=== PATIENT | male | born 1985 | race Caucasian/White ===

== ENCOUNTER 2022-08-24 11:37 | Emergency (ER) | payer SELFPAY ==
[2022-08-24 11:51] VITALS: BP 94/66; PULSE 96; RESP 18; TEMP 37.7; O2SAT 96
--- NOTE | 2022-08-24 12:06 | ED.SKABFB ---
HPI - Skin/Abscess/Foreign Bdy General Chief complaint: Skin/Abscess/Foreign Body Stated complaint: under arm right side irritation Time Seen by Provider: 08/24/22 12:06 Source: patient Mode of arrival: ambulatory Limitations: no limitations History of Present Illness HPI narrative: 36 yo M presents with large abscess to R axilla. Has had redness, swelling, pain for approx. 2 wks. has been taking ibuprofen and applying a lidocaine ointment to area. Pt states he is homeless. All systems reviewed and negative except as noted above. Related Data Allergies Allergy/AdvReac Type Severity Reaction Status Date / Time No Known Allergies Allergy Verified 08/24/22 11:40 Review of Systems Review of Systems: CONSTITUTIONAL: Denies fever, chills, or sweats. EYES: Denies visual changes, redness, or discharge. ENT: Denies rhinorrhea, congestion, sore throat, or otalgia. CARDIOVASCULAR: Denies chest pain, palpitations, or edema. RESPIRATORY: Denies cough or dyspnea. GASTROINTESTINAL: Denies abdominal pain, nausea, vomiting, or diarrhea. GENITOURINARY: Denies dysuria or hematuria. SKIN: Denies rash or itching. reports redness, swelling to R axilla. MUSCULOSKELETAL: Denies back pain, joint pain, or myalgia. NEUROLOGIC: Denies headache, numbness, or weakness. PSYCHIATRIC: Denies anxiety or depression. All other systems reviewed are negative, except as documented in HPI. PMFSH Comments At time of signature, agree with nursing past medical, surgical, social and family history. There is no relevant family history pertinent to the presenting complaint. Exam Narrative: GENERAL: This is a well-nourished, well-developed patient, in no apparent distress. HEAD: normocephalic, atraumatic. EYES: PERRL. Sclera clear/white. Vision is grossly intact. EARS: External ears normal NOSE: External nose normal NECK: Neck supple, non-tender without lymphadenopathy, masses or thyromegaly. CARDIOVASCULAR: Regular rate and rhythm without murmurs, gallops, or rubs. RESPIRATORY: Clear to auscultation. Breath sounds equal bilaterally. No wheezes, rales, or rhonchi. SKIN: warm, Dry, intact with no suspicious lesions or rash, good texture and turgor. abscess to R axilla 9 x 10cm. fluctuant. tender on palpation. NEURO: awake, alert, and oriented to person, place and time. There were no obvious focal neurologic abnormalities. EXTREMITIES: No joint tenderness, effusion, or edema noted. Course Course Level of Care: Express Care Visit Vital Signs Vital signs: Vital Signs Temperature 37.7 C H 08/24/22 11:51 Pulse Rate 96 08/24/22 11:51 Respiratory Rate 18 08/24/22 11:51 Blood Pressure 94/66 L 08/24/22 11:51 Pulse Oximetry 96 08/24/22 11:51 Oxygen Delivery Room Air 08/24/22 11:51 Temperature 37.7 C H 08/24/22 12:39 Pulse Rate 96 08/24/22 12:39 Respiratory Rate 18 08/24/22 12:39 Blood Pressure 94/66 L 08/24/22 12:39 Pulse Oximetry 96 08/24/22 12:39 Oxygen Delivery Room Air 08/24/22 12:39 reviewed MDM - Skin/Abscess/Foreign Bdy MDM Narrative Medical decision making narrative: approx. 1215 attempted I and D. pt requested ibuprofen and stated he needed 20 minutes for it to kick in . (it was recommended to pt with an abscess this size that he go to the ER for pain control and I and D but he stated if it wasn't taken care of here he'd just go back out of streets . approx. 1235 attempted I and D. pt kicked and yelling while applying betadine. pt refused. Said ibuprofen not working yet. requested topical pain relief. offered again to transfer pt to ER for I and D and he said he'd go back out on streets . approx. 1335 attempted I and D. pt yelling while applying betadine. kicking feet. cussing. yelling we are not professional. explained to him how lidocaine would be administered. he refused procedure and stated he wanted to leave. prescribed clindamycin. recommended to him that he go to the ER for treatment. he
--- NOTE | 2022-08-24 12:11 | PC.NURSE ---
grandmother called and no answer. msg left per pt request. stated has no transportation and needs grandmother here.
[2022-08-24] MEDS: IBUPROFEN 600 MG TABLET PO (12:21)
--- NOTE | 2022-08-24 12:32 | PC.NURSE ---
call attempted to grandmother again with no answer. pt unable to tolerate touch. kept pulling away and yelling and grabbing at final canoe inspector.
[2022-08-24 12:39] VITALS: BP 94/66; PULSE 96; RESP 18; TEMP 37.7; O2SAT 96
[2022-08-24] MEDS: LIDOCAINE, EPINEPHRINE, TETRACAINE VISCOUS SOLN 3 ML TOPICAL (12:51)
--- NOTE | 2022-08-24 12:51 | PC.NURSE ---
attempt #3 to call grandmother.
--- NOTE | 2022-08-24 13:43 | PC.NURSE ---
grandmother answered phone and stated could be here in 15-20 min. aware of need for further evaluation. will provide transportation to er. was unable to tolerate procedure, was kicking legs and yelling when rn medical inpatient services attempted to clean with betadine.
--- NOTE | 2022-08-24 13:59 | PC.NURSE ---
grandmother here to provide transportation.
--- NOTE | 2022-08-24 14:34 | PC.NURSE ---
1346 grandmother did come to [facility] and provided transportation to er.
== END 2022-08-24 13:46 | disposition left against medical advice (07) ==
PROVIDERS: Emergency Provider Nurse Practitioner Family; PCP Family Medicine
DX: L02.411 Cutaneous abscess of right axilla (principal)
CPT/HCPCS: 99213; A9270; G0463

== ENCOUNTER 2022-08-24 14:33 | Inpatient (IN) | payer OTHER, SELFPAY ==
[2022-08-24 14:34] VITALS: BP 123/68; PULSE 88; RESP 16; TEMP 36.9; O2SAT 96
[2022-08-24 15:15] VITALS: BP 102/58; PULSE 81; RESP 16; O2SAT 100
[2022-08-24 15:15] LABS: Basophils Absolute Auto 0.1 K/mm3 (0.0-0.1); Basophils Percent Auto 0.6 % (0.2-1.2); Eosinophils Absolute Auto 0.6 K/mm3 (0-0.3); Eosinophils Percent Auto 3.1 % (0-4.4); Hemoglobin 13.3 g/dL (14.0-18.0); Immature Granulocyte Absolute 0.21 K/mm3 (0.00-0.031); Immature Granulocyte Percent A 1.1 % (0-0.5); Lymphocytes Absolute Auto 2.34 K/mm3 (0.9-3.2); Lymphocytes Percent Auto 11.9 % (18.3-44.2); Mean Corpuscular HGB Conc 33.3 g/dl (32-36); Mean Corpuscular Hemoglobin 29.9 pg (26-34); Mean Corpuscular Volume 89.9 fl (80-100); Mean Platelet Volume 8.9 fl (7.4-10.4); Monocytes Absolute Auto 2.2 K/mm3 (0.1-0.6); Monocytes Percent Auto 11.1 % (2.6-8.5); Neutrophils Absolute Auto 14.2 K/mm3 (1.3-6.7); Neutrophils Percent Auto 72.2 % (45.5-73.1); Platelet Count Result 423 k/mm3 (150-375); Red Blood Count 4.45 M/mm3 (4.6-6.20); Red Cell Distribution Width 12.8 % (11.5-14.5); White Blood Count 19.7 K/mm3 (4.5-10.0)
[2022-08-24 15:27] LABS: Alanine Aminotransferase 25 U/L (6-50); Albumin Level 3.6 g/dL (3.5-5.1); Alkaline Phosphatase 112 U/L (38-126); Anion Gap 4 mmol/L (8-16); Aspartate Amino Transferase 26 U/L (17-59); Bilirubin,Total 0.5 mg/dL (0.2-1.3); Blood Urea Nitrogen 11 mg/dL (9-20); Calcium 8.6 mg/dL (8.4-10.2); Carbon Dioxide 32 mmol/L (22-30); Chloride 99 mmol/L (98-107); Estimated CRCL calculation 75 ml/min; Estimated Glomerular Filt Rate > 60; Glucose 122 mg/dL (65-110); Potassium 3.4 mmol/L (3.4-5.0); Sodium 135 mmol/L (137-145)
[2022-08-24 16:02] VITALS: BP 118/68; PULSE 86; RESP 16; TEMP 37.1; O2SAT 100
--- NOTE | 2022-08-24 16:23 | ED.SKABFB ---
HPI - Skin/Abscess/Foreign Bdy General Chief complaint: Skin/Abscess/Foreign Body <LEA Ramey Last Filed: 08/24/22 18:33> Stated complaint: right axilla abcess <LEA Ramey Last Filed: 08/24/22 18:33> Time Seen by Provider: 08/24/22 14:52 <LEA Ramey Last Filed: 08/24/22 18:33> Source: patient and old records reviewed <LEA Ramey Last Filed: 08/24/22 18:33> Mode of arrival: ambulatory <LEA Ramey Filed: 08/24/22 18:33> Limitations: no limitations <LEA Ramey Last Filed: 08/24/22 18:33> History of Present Illness HPI narrative: Patient is a 36-year-old homeless man who presents to the ED with report of an abscess to his right axilla. Patient reports the abscess began about 1 week ago as an ingrown hair. It has continued to bother him and has not improved. He reports pain to his axillary region. Denies any fevers. Patient was seen at an urgent care prior to arrival and would not allow the I&D to be performed. He was referred here. Patient has never had any symptoms like this before. <LEA Ramey Last Filed: 08/24/22 18:33> Related Data Allergies/Adverse reactions: Allergies Allergy/AdvReac Type Severity Reaction Status Date / Time No Known Allergies Allergy Verified 08/25/22 14:24 <LEA Ramey Last Filed: 08/24/22 18:33> Review of Systems Review of Systems: CONSTITUTIONAL: Denies fever, chills, or sweats. SKIN: See HPI. MUSCULOSKELETAL: See HPI. NEUROLOGIC: Denies headache, numbness, or weakness. <LEA Ramey Last Filed: 08/24/22 18:33> All systems reviewed & are unremarkable except as noted in HPI and below <Stacia Alfaro PA-C - Last Filed: 08/24/22 18:33> [facility] Past Medical History Medical History: Medical History (Updated 08/25/22 @ 14:14 by Moi Hand DO) Medical history unknown <Stacia Alfaro PA-C - Last Filed: 08/24/22 18:33> Family History Family History: Family History (Updated 08/25/22 @ 14:14 by Moi Hand DO) Other Family history unknown <Stacia Alfaro PA-C - Last Filed: 08/24/22 18:33> Social History Social History: Social History (Updated 08/25/22 @ 13:26 by Lei Davis DO) Smoking packs per day: 1 Smoking cigarettes per day: 20.0 Years smoked: 15 Smoking pack-years: 15.00 Smoking status: Current every day smoker Tobacco type: cigarettes and e-cigarettes/vaping Alcohol intake: never Substance use: current Substance use type: methamphetamine Other substance usage details: and other drugs Lack of Transportation: YES Lack of Food: Often True Current Housing: I Do Not Have Housing Concerned About Future Housing: YES Difficulty Paying Gas/Electric Bills: YES Difficulty Paying for Meds: YES Currently Unemployed: YES Education: Grade School Difficulty w/ Childcare or Family Care: No Spiritual care concerns: No <Stacia Alfaro PA-C - Last Filed: 08/24/22 18:33> Exam Narrative: GENERAL: Short stature, thin, non-toxic, in no acute distress. HEAD: Normocephalic, atraumatic. ENT: Edentulous. NECK: Supple. No adenopathy, no masses. RESPIRATORY: Airway patent, respirations nonlabored. Clear to auscultation bilaterally, no rales, rhonchi, wheezing. CARDIOVASCULAR: Regular rate and rhythm without murmurs, rubs, or gallops. Radial pulses 2+ and equal bilaterally. MUSCULOSKELETAL: Moves all extremities. Strength/ROM intact without gross deformities. SKIN: Warm, dry, normal color. No rashes. Large baseball-sized abscess to R axillary region, diffuse fluctuance appreciated, no obvious pustular head. Severe TTP with any palpation of abscess. NEURO: A&O X3. Speech clear. Cranial nerves II-XII grossly intact. Steady gait. No ataxic movements. PSYCHIATRIC: Appropriate mood a
[2022-08-24] MEDS: LIDOCAINE HCL 1% LOCAL INJ 10 ML VIAL 5 ML INFILTRATE (17:17)
[2022-08-24 17:30] VITALS: BP 128/70; PULSE 82; RESP 16; TEMP 36.3; O2SAT 100
[2022-08-24] MEDS: ACETAMINOPHEN 500 MG TABLET 1000 MG PO (18:13)
[2022-08-24 18:20] LABS: Lactic Acid Reflex 1.5 mmol/L (0.7-2.0)
[2022-08-24 18:36] VITALS: BP 95/47; PULSE 67; RESP 16; TEMP 36.3; O2SAT 100
[2022-08-24] MEDS: VANCOMYCIN 750 MG/NS 250 ML 750 MG/250 ML BAG 250 MG IVPB (18:36)
[2022-08-24 20:00] VITALS: BP 92/59; PULSE 74; RESP 18; TEMP 37; O2SAT 99
[2022-08-24 21:21] LABS: Basophils Absolute Auto 0.1 K/mm3 (0.0-0.1); Basophils Percent Auto 0.7 % (0.2-1.2); Eosinophils Absolute Auto 0.9 K/mm3 (0-0.3); Eosinophils Percent Auto 5.7 % (0-4.4); Hemoglobin 12.9 g/dL (14.0-18.0); Immature Granulocyte Absolute 0.19 K/mm3 (0.00-0.031); Immature Granulocyte Percent A 1.2 % (0-0.5); Lymphocytes Absolute Auto 2.45 K/mm3 (0.9-3.2); Lymphocytes Percent Auto 15.9 % (18.3-44.2); Mean Corpuscular HGB Conc 33.1 g/dl (32-36); Mean Corpuscular Hemoglobin 29.8 pg (26-34); Mean Corpuscular Volume 90.1 fl (80-100); Monocytes Absolute Auto 1.7 K/mm3 (0.1-0.6); Neutrophils Absolute Auto 10.1 K/mm3 (1.3-6.7); Neutrophils Percent Auto 65.5 % (45.5-73.1); Platelet Count Result 399 k/mm3 (150-375); Red Blood Count 4.33 M/mm3 (4.6-6.20); Red Cell Distribution Width 12.7 % (11.5-14.5); White Blood Count 15.4 K/mm3 (4.5-10.0)
[2022-08-24 21:36] LABS: Anion Gap 8 mmol/L (8-16); Blood Urea Nitrogen 14 mg/dL (9-20); Calcium 8.4 mg/dL (8.4-10.2); Carbon Dioxide 29 mmol/L (22-30); Chloride 100 mmol/L (98-107); Estimated CRCL calculation 75 ml/min; Estimated Glomerular Filt Rate > 60; Glucose 166 mg/dL (65-110); Potassium 3.5 mmol/L (3.4-5.0); Sodium 137 mmol/L (137-145)
[2022-08-24 21:53] LABS: CRP 22.6 mg/dL (<1.0)
[2022-08-24 21:57] LABS: Erythrocyte Sedimentation Rate 45 mm/hr (0-20)
[2022-08-25] VITALS (11 sets, daily range): BP systolic 94–147; BP diastolic 48–74; PULSE 70–86; RESP 14–23; TEMP 36–37.7; O2SAT 98–100; BMI 14.5
--- NOTE | 2022-08-25 02:02 | PM.IMHP ---
H&P: HPI History of Present Illness Date/Time: 08/25/22 02:02 Chief Complaint: Left axillary abscess. Narrative: This is a 36-year-old homeless man who presents to the ED with report of an abscess to his right axilla.?The patient was in his usual state of health until a week ago. He denies any prior episode. Patient reports the abscess began about 1 week ago as an ingrown hair.? It has continued to bother him and has not improved.? He reports pain to his axillary region.? Denies any fevers, chills, or diaphoresis.? Patient was seen at an urgent care prior to arrival and would not allow the I&D to be performed.? Patient underwent I and D; approximately 60 mL of purulent drainage was drained from abscess . Procedure was aborted due to the patient's lack of cooperation. In the ED the patient presented with the following vital signs: A temperature of 98.4?, pulse rate 88, respiratory rate 16, blood pressure 123/68 and a pulse oximetry of 96. He CBC showed a WBC of 19.7 with 72% neutrophils, hemoglobin 13.3, hematocrit 40 and a platelet count of 423. His serum chemistry shows a sodium of 135, potassium 3.4, chloride 99, bicarbonate 32, BUN 11, and creatinine 0.1. Blood glucose is 122. The patient was appropriately started on IV vancomycin while cultures are pending. Given the patient's social challenges, being homeless, he will be admitted as an inpatient for at least 2 midnights for further management. Review of Systems Review of Systems: CONSTITUTIONAL: Negative for any fevers, chills, night sweats, tiredness, fatigue, malaise, anorexia or weight loss. CARDIOVASCULAR: Negative for chest pain, palpitations, dizziness, orthopnea or lower extremity edema. RESPIRATORY: Negative for shortness of breath, cough, wheezing, sputum. GENITOURINARY: Negative for frequency, nocturia, dysuria, hematuria. GYNECOLOGIC: Negative for abnormal bleeding. HEMATOLOGIC: Negative for any abnormal bleeding or bruising. MUSCULOSKELETAL: Negative for joint swelling, stiffness or pain. SKIN: Positive for painful abscess. Negative for rashes, eruptions, lesions or dryness. NEUROLOGIC: Negative for any focal neurologic complaints. PSYCHIATRIC: Negative for anxiety, panic, depression. [facility] Social History Social History Smoking packs per day: 1 Smoking cigarettes per day: 20.0 Years smoked: 15 Smoking pack-years: 15.00 Smoking status: Current every day smoker Tobacco type: cigarettes and e-cigarettes/vaping Alcohol intake: never Substance use: never Substance use type: does not use Lack of Transportation: YES Lack of Food: Often True Current Housing: I Do Not Have Housing Concerned About Future Housing: YES Difficulty Paying Gas/Electric Bills: YES Difficulty Paying for Meds: YES Currently Unemployed: YES Education: Grade School Difficulty w/ Childcare or Family Care: No Spiritual care concerns: No Meds Home Medications and Allergies Home Medications Medication Instructions Recorded Confirmed Type clindamycin HCl 300 mg capsule 300 mg PO Q6H 10 days #40 caps 08/24/22 08/24/22 Rx Allergies Allergy/AdvReac Type Severity Reaction Status Date / Time No Known Allergies Allergy Verified 08/24/22 11:40 Vital Signs Vital Signs - 24 hr 08/24/22 14:34 08/24/22 15:15 08/24/22 16:02 Temperature 98.4 F 98.8 F Pulse Rate 88 81 86 Respiratory Rate 16 16 16 Blood Pressure 123/68 102/58 L 118/68 Pulse Oximetry 96 100 100 Oxygen Delivery 08/24/22 17:30 08/24/22 18:36 08/24/22 20:00 Temperature 97.4 F L 97.3 F L 98.6 F Pulse Rate 82 67 74 Respiratory Rate 16 16 18 Blood Pressure 128/70 95/47 L 92/59 L Pulse Oximetry 100 100 99 Oxygen Delivery 08/24/22 20:05 Temperature Pulse Rate Respiratory Rate Blood Pressure Pulse Oximetry Oxygen Delivery Room Air Exam Narrative: GENERAL: The patient is alert and oriented, in n
[2022-08-25 06:50] LABS: Estimated CRCL calculation 75 ml/min; Estimated Glomerular Filt Rate > 60
[2022-08-25 07:00] LABS: Hemoglobin A1C 5.5 % (<5.7)
[2022-08-25] MEDS: LACTATED RINGERS 1,000 ML 100 ML IV CONT ×2 (08:59→21:38)
--- NOTE | 2022-08-25 11:33 | WPDHPUPDATE1 ---
History and Physical Update Update Date/Time: 08/25/22 11:33 History and Physical has been reviewed, including an updated exam of the patient. There are NO changes in the patient's condition. Risks, benefits, and alternatives have been discussed and questions answered. Patient agrees to proceed with procedure.
--- NOTE | 2022-08-25 11:33 | PM.CNGS ---
Assessment and Plan Assessment and plan (1) Abscess of axilla, right: Code(s): L02.411 - Cutaneous abscess of right axilla Status: Acute Assessment and Plan: Patient has a large fluctuant abscess in the right axilla. I&D was attempted in the ED but there was still undrained areas and patient couldn't tolerate under local. Have recommended proceeding with incision and drainage of right axillary abscess under sedation in the operating room. I have discussed the procedure, risks, benefits, and alternatives. Questions were answered. History of Present Illness Consult details Consult date: 08/25/22 Reason for consult: other (Right axillary abscess) Requesting physician: Stacia Alfaro PA-C Narrative: This is a 36-year-old man who presented to the emergency department overnight with right axillary pain. He was noticing redness and swelling in this region over the past week. He was found to have a large axillary abscess and incision and drainage was attempted in the emergency department. A lot of purulence fluid was drained, but he continued to have further swelling in this region and could not tolerate any more bedside procedure with local alone. He was admitted and placed on IV antibiotics. No imaging has been performed yet. Review of Systems Review of Systems: All systems reviewed & are unremarkable except as noted in HPI and below Eyes: Eyes: Denies change in vision ENT: Denies hearing loss, Denies neck pain and Denies sore throat Cardiovascular: Cardiovascular: Denies chest pain and Denies dyspnea Respiratory: Respiratory: Denies cough, Denies dyspnea and Denies wheezing Genitourinary: Genitourinary: Denies hematuria and Denies dysuria Musculoskeletal: Musculoskeletal: Denies arthralgias, Denies joint swelling and Denies neck pain Integumentary/Breasts: Skin/Breast: Reports as per HPI Allergic/Immunologic: Allergic/Immunologic: Denies wheezing [facility] Past Medical History Medical History (Updated 08/25/22 @ 14:14 by Moi Hand DO) Medical history unknown Family History Family History (Updated 08/25/22 @ 14:14 by Moi Hand DO) Other Family history unknown Social History Social History (Updated 08/25/22 @ 13:26 by Lei Davis DO) Smoking packs per day: 1 Smoking cigarettes per day: 20.0 Years smoked: 15 Smoking pack-years: 15.00 Smoking status: Current every day smoker Tobacco type: cigarettes and e-cigarettes/vaping Alcohol intake: never Substance use: current Substance use type: methamphetamine Other substance usage details: and other drugs Lack of Transportation: YES Lack of Food: Often True Current Housing: I Do Not Have Housing Concerned About Future Housing: YES Difficulty Paying Gas/Electric Bills: YES Difficulty Paying for Meds: YES Currently Unemployed: YES Education: Grade School Difficulty w/ Childcare or Family Care: No Spiritual care concerns: No Meds Home Medications and Allergies Home Medications Medication Instructions Recorded Confirmed Type clindamycin HCl 300 mg capsule 300 mg PO Q6H 10 days #40 caps 08/24/22 08/24/22 Rx Allergies Allergy/AdvReac Type Severity Reaction Status Date / Time No Known Allergies Allergy Verified 08/24/22 11:40 Vital Signs Vital Signs - 24 hr 08/24/22 14:34 08/24/22 15:15 08/24/22 16:02 Temperature 36.9 C 37.1 C Pulse Rate 88 81 86 Respiratory Rate 16 16 16 Blood Pressure 123/68 102/58 L 118/68 Pulse Oximetry 96 100 100 Oxygen Delivery 08/24/22 17:30 08/24/22 18:36 08/24/22 20:00 Temperature 36.3 C L 36.3 C L 37.0 C Pulse Rate 82 67 74 Respiratory Rate 16 16 18 Blood Pressure 128/70 95/47 L 92/59 L Pulse Oximetry 100 100 99 Oxygen Delivery 08/24/22 20:05 08/25/22 04:03 08/25/22 08:50 Temperature 36.1 C L Pulse Rate 75 Respiratory Rate 18 Blood Pressure 94/54 L Pulse Oximetry 100 Oxygen Delivery Ro
[2022-08-25] MEDS: VANCOMYCIN 750 MG/NS 250 ML 750 MG/250 ML BAG 250 MG IVPB (12:37)
[2022-08-25] MEDS: LACTATED RINGERS 1,000 ML 30 ML IV CONT ×2 (13:00→14:04)
--- NOTE | 2022-08-25 13:04 | PC.NURSE ---
To OR per stretcher. Report given to FAWAD Baca .
--- NOTE | 2022-08-25 13:22 | WPDANESEPPF ---
Anes - Initial Pre Proc Eval Procedure: Operation Date: 08/25/22 14:00 Proposed Procedures p Incision and Debridement Right Axillary Abscess - Moi Hand DO Date/Time: 08/25/22 13:22 Surgeon: Nikolas Calvillo MD Pre Op Diagnosis: R Axillary Abscess, Leukocytosis Patient Data Age: 36 Gender: M Height: 1.57 m Weight: 36 kg Last Vital Signs Temp 36.1 C L 08/25/22 04:03 Pulse 75 08/25/22 04:03 Resp 18 08/25/22 04:03 BP 94/54 L 08/25/22 04:03 Pulse Ox 100 08/25/22 04:03 O2 Del Method Room Air 08/25/22 08:50 Allergies Allergy/AdvReac Type Severity Reaction Status Date / Time No Known Allergies Allergy Verified 08/24/22 11:40 Home Medications Medication Instructions Recorded Confirmed Type clindamycin HCl 300 mg capsule 300 mg PO Q6H 10 days #40 caps 08/24/22 08/24/22 Rx Laboratory Tests 08/24/22 08/24/22 08/24/22 15:10 17:44 21:14 WBC 19.7 H K/mm3 15.4 H K/mm3 (4.5-10.0) (4.5-10.0) RBC 4.45 L M/mm3 4.33 L M/mm3 (4.6-6.20) (4.6-6.20) Hgb 13.3 L g/dL 12.9 L g/dL (14.0-18.0) (14.0-18.0) Hct 40.0 L % 39.0 L % (42.0-52.0) (42.0-52.0) MCV 89.9 fl 90.1 fl (80-100) (80-100) MCH 29.9 pg 29.8 pg (26-34) (26-34) MCHC 33.3 g/dl 33.1 g/dl (32-36) (32-36) RDW 12.8 % 12.7 % (11.5-14.5) (11.5-14.5) Plt Count 423 H k/mm3 399 H k/mm3 (150-375) (150-375) MPV 8.9 fl 9.0 fl (7.4-10.4) (7.4-10.4) Immature Gran % (Auto) 1.1 H % 1.2 H % (0-0.5) (0-0.5) Neut % (Auto) 72.2 % 65.5 % (45.5-73.1) (45.5-73.1) Lymph % (Auto) 11.9 L % 15.9 L % (18.3-44.2) (18.3-44.2) [place] % (Auto) 11.1 H % 11.0 H % (2.6-8.5) (2.6-8.5) Eos % (Auto) 3.1 % 5.7 H % (0-4.4) (0-4.4) Baso % (Auto) 0.6 % 0.7 % (0.2-1.2) (0.2-1.2) Lymph # (Auto) 2.34 K/mm3 2.45 K/mm3 (0.9-3.2) (0.9-3.2) [place] # (Auto) 2.2 H K/mm3 1.7 H K/mm3 (0.1-0.6) (0.1-0.6) Eos # (Auto) 0.6 H K/mm3 0.9 H K/mm3 (0-0.3) (0-0.3) Baso # (Auto) 0.1 K/mm3 0.1 K/mm3 (0.0-0.1) (0.0-0.1) Abs Immat Gran (auto) 0.21 H K/mm3 0.19 H K/mm3 (0.00-0.031) (0.00-0.031) Absolute Neuts (auto) 14.2 H K/mm3 10.1 H K/mm3 (1.3-6.7) (1.3-6.7) Absolute Nucleated RBC 0.0 K/mm3 0.0 K/mm3 (0.0-0.012) (0.0-0.012) Nucleated RBC % 0.0 % 0.0 % (0.0-0.2) (0.0-0.2) ESR 45 H mm/hr (0-20) Sodium 135 L mmol/L 137 mmol/L (137-145) (137-145) Potassium 3.4 mmol/L 3.5 mmol/L (3.4-5.0) (3.4-5.0) Chloride 99 mmol/L 100 mmol/L (98-107) (98-107) Carbon Dioxide 32 H mmol/L 29 mmol/L (22-30) (22-30) Anion Gap 4 L mmol/L 8 mmol/L (8-16) (8-16) BUN 11 mg/dL 14 mg/dL (9-20) (9-20) Creatinine 0.60 L mg/dL 0.60 L mg/dL (0.7-1.3) (0.7-1.3) Estim Creat Clear Calc 75 ml/min 75 ml/min Estimated GFR > 60 > 60 (59 - ) (59 - ) Glucose 122 H mg/dL 166 H mg/dL (65-110) (65-110) Hemoglobin A1c Lactic Acid 1.5 mmol/L (0.7-2.0) Calcium 8.6 mg/dL 8.4 mg/dL (8.4-10.2) (8.4-10.2) Total Bilirubin 0.5 mg/dL (0.2-1.3) AST 26 U/L (17-59) ALT 25 U/L (6-50) Alkaline Phosphatase 112 U/L (38-126) C-Reactive Protein 22.6 H mg/dL (<1.0) Total Protein 7.0 g/dL (6.3-8.2) Albumin 3.6 g/dL (3.5-5.1) 08/25/22 06:19 WBC RBC Hgb Hct MCV MCH MCHC RDW Plt Count MPV Immature Gran % (Auto) Neut % (Auto) Lymph % (Auto) [place] % (Auto) Eos % (Auto) Baso % (Auto) Lymph # (Auto) [place] # (Auto) Eos # (Auto) Baso # (Auto) Abs Immat Gran (auto) Absolute Neuts (auto) Absolute Nuclea
--- NOTE | 2022-08-25 14:16 | W.PM.PROC2 ---
Procedure Note - Detailed Date of Procedure 08/25/22 Pre-op Diagnosis R Axillary Abscess, Leukocytosis Post-op Diagnosis Same Procedure Performed Incision and drainage of complex right axillary abscess Surgeon Moi Hand, DO Anesthesia General and Local (0.25% bupivacaine with epinephrine) Indications This is a 36-year-old man who presented to the emergency department overnight with a right axillary abscess. Incision and drainage was attempted in the emergency department and fair amount of fluid was drained but there still remained a large area of fluctuance. This was too tender to tolerate at the bedside therefore he was admitted for further treatment. Discussions were made with the patient about treatment options and decision was made to proceed with incision and drainage of right axillary abscess under anesthesia. Findings Incision and drainage of complex right axillary abscess was performed. The incision was carried out over the area of fluctuance to length of about 3 cm there were multiple loculations that were carefully broken up using finger dissection. The area was then irrigated with sterile saline. It was then packed with 1 in iodoform gauze. Description of Procedure Procedure as well as risks, benefits, and alternatives were discussed with the patient. Written consent was obtained and placed in chart prior to procedure. Patient was brought back to surgical suite. He was placed supine on operating table. Time-out was done to confirm patient and procedure. He was intubated by the anesthesia department. His right axillary region was then prepped and draped in sterile fashion using Betadine prep. 0.25% bupivacaine with epinephrine was infiltrated locally around the area of fluctuance. A 3 cm transverse incision was then made directly over the area of fluctuance. Copious amount of purulence fluid was drained. The loculations were carefully broken up using finger dissection. The wound was then irrigated with sterile saline. Hemostasis was achieved with electrocautery. The wound was then packed with 1 in iodoform gauze. 4 x 4 gauze, ABD pad, and Medipore tape were then applied. The patient was then awakened from anesthesia, extubated, and transferred to recovery. Estimated Blood Loss -10.0 Packing Yes (1 in iodoform gauze) Complications No immediate complications Condition Stable Disposition Floor AM Billing Surgery - Charge Forward: Surgery Billing
[2022-08-25] MEDS: fentaNYL CITRATE INJ (*CRX) 100 MCG/2 ML VIAL 25 MCG IV PUSH ×4 (14:35→14:47)
--- NOTE | 2022-08-25 15:10 | PC.NURSE ---
Returned from OR per Stretcher. Report received from Mary CELESTIN.
--- NOTE | 2022-08-25 16:33 | WPDPN ---
Progress Note: A&P Assessment and Plan (1) Abscess of axilla, right: Code(s): L02.411 - Cutaneous abscess of right axilla Status: Acute Assessment and Plan: Likely secondary to acute folliculitis; now s/p I and D. Continue IV vancomycin. Warm compresses every 2-4 hrs. Pain management 08/25/2022 interval history: patient with right axilla abscess I and D in the ED but it was too painful and was not able to complete it, today patient was seen by general surgery and patient was taken to OR and had I and D under anesthesia, patient is being treated with ceftriaxone and vancomycin, will follow up on wound and blood culture, patient stats feels anxious, will give low dose xanax. will monitor. (2) Leukocytosis: Qualifiers: Leukocytosis type: unspecified Qualified Code(s): D72.829 - Elevated white blood cell count, unspecified Code(s): D72.829 - Elevated white blood cell count, unspecified Status: Acute Assessment and Plan: Likely reactional. Expected to improve as infection resolves. Monitor ESR and CRP. Plan DVT prophylaxis: lovenox, walk each shift Subjective Date/time seen: 08/25/22 16:33 Interval history: Chief Complaint: Left axillary abscess. HPI-Narrative: This is a 36-year-old homeless man who presents to the ED with report of an abscess to his right axilla.?The patient was in his usual state of health until a week ago. He denies any prior episode.? Patient reports the abscess began about 1 week ago as an ingrown hair.? It has continued to bother him and has not improved.? He reports pain to his axillary region.? Denies any fevers, chills, or diaphoresis.? Patient was seen at an urgent care prior to arrival and would not allow the I&D to be performed.? Patient underwent I and D; approximately 60 mL of purulent drainage was drained from abscess . Procedure was aborted due to the patient's lack of cooperation. In the ED the patient presented with the following vital signs: A temperature of 98.4?, pulse rate 88, respiratory rate 16, blood pressure 123/68 and a pulse oximetry of 96.? He CBC showed a WBC of 19.7 with 72% neutrophils, hemoglobin 13.3, hematocrit 40 and a platelet count of 423.? His serum chemistry shows a sodium of 135, potassium 3.4, chloride 99, bicarbonate 32, BUN 11, and creatinine 0.1.? Blood glucose is 122.? The patient was appropriately started on IV vancomycin while cultures are pending.? Given the patient's social challenges, being homeless, he will be admitted as an inpatient for at least 2 midnights for further management. 08/25/2022 interval history: patient with right axilla abscess I and D in the ED but it was too painful and was not able to complete it, today patient was seen by general surgery and patient was taken to OR and had I and D under anesthesia, patient is being treated with ceftriaxone and vancomycin, will follow up on wound and blood culture, patient stats feels anxious, will give low dose xanax. will monitor. Review of Systems Review of Systems: All systems reviewed & are unremarkable except as noted in HPI and below Exam Narrative: Under nourished Patient is comfortable, NAD HEENT: eyes are clear and none icteric LUNGS: Normal respiratory effort ABD: Not distended Lower extremities: no edema SKIN: nonjaundiced. right axila, wound dressing Neuro: grossly intact. Objective Data Vital Signs Vital Signs: Vital Signs - 24 hr 08/24/22 17:30 08/24/22 18:36 08/24/22 20:00 Temperature 97.4 F L 97.3 F L 98.6 F Pulse Rate 82 67 74 Respiratory Rate 16 16 18 Blood Pressure 128/70 95/47 L 92/59 L Pulse Oximetry 100 100 99 Oxygen Delivery Oxygen Flow Rate 08/24/22 20:05 08/25/22 04:03 08/25/22 08:50 Temperature 96.9 F L Pulse Rate 75 Respiratory Rate 18 Blood Pressure 94/54 L Pulse Oximetry 100 Oxygen Delivery Room Air Room Air Oxygen Flow Rate 08/25/22 14:04 08/25/22 14:20 08/25/22 13:11 Nathan
[2022-08-25] MEDS: NICOTINE (*PBKC) 21 MG PATCH 1 PATCH TRANSDERM (17:11)
[2022-08-25 19:53] LABS: Basophils Percent Auto 0.4 % (0.2-1.2); Eosinophils Absolute Auto 0.1 K/mm3 (0-0.3); Eosinophils Percent Auto 0.7 % (0-4.4); Hematocrit 35.9 % (42.0-52.0); Hemoglobin 11.6 g/dL (14.0-18.0); Immature Granulocyte Absolute 0.16 K/mm3 (0.00-0.031); Immature Granulocyte Percent A 1.5 % (0-0.5); Lymphocytes Absolute Auto 0.94 K/mm3 (0.9-3.2); Lymphocytes Percent Auto 8.8 % (18.3-44.2); Mean Corpuscular HGB Conc 32.3 g/dl (32-36); Mean Corpuscular Hemoglobin 29.5 pg (26-34); Mean Corpuscular Volume 91.3 fl (80-100); Mean Platelet Volume 9.2 fl (7.4-10.4); Monocytes Absolute Auto 0.2 K/mm3 (0.1-0.6); Neutrophils Absolute Auto 9.3 K/mm3 (1.3-6.7); Neutrophils Percent Auto 86.6 % (45.5-73.1); Platelet Count Result 429 k/mm3 (150-375); Red Blood Count 3.93 M/mm3 (4.6-6.20); Red Cell Distribution Width 12.9 % (11.5-14.5); White Blood Count 10.7 K/mm3 (4.5-10.0)
[2022-08-25 20:10] LABS: Anion Gap 8 mmol/L (8-16); Blood Urea Nitrogen 12 mg/dL (9-20); Calcium 8.1 mg/dL (8.4-10.2); Carbon Dioxide 26 mmol/L (22-30); Chloride 100 mmol/L (98-107); Estimated CRCL calculation 75 ml/min; Estimated Glomerular Filt Rate > 60; Glucose 212 mg/dL (65-110); Potassium 4.4 mmol/L (3.4-5.0); Sodium 134 mmol/L (137-145)
[2022-08-25 20:22] LABS: CRP 15.5 mg/dL (<1.0)
[2022-08-25 20:23] LABS: Erythrocyte Sedimentation Rate 60 mm/hr (0-20)
[2022-08-26] VITALS (8 sets, daily range): BP systolic 88–110; BP diastolic 49–66; PULSE 69–87; RESP 14–18; TEMP 36.2–37.7; O2SAT 98–100
[2022-08-26] MEDS: VANCOMYCIN 750 MG/NS 250 ML 750 MG/250 ML BAG 200 MG IVPB (06:21)
[2022-08-26] MEDS: LACTATED RINGERS 1,000 ML 100 ML IV CONT (06:21)
[2022-08-26 06:43] LABS: Estimated CRCL calculation 75 ml/min; Estimated Glomerular Filt Rate > 60
[2022-08-26] MEDS: NICOTINE (*PBKC) 21 MG PATCH 1 PATCH TRANSDERM (08:59)
[2022-08-26] MEDS: IBUPROFEN 600 MG TABLET PO (09:39)
[2022-08-26] MEDS: HYDROcodone/acetaminophen (*CRX) 10-325 MG TABLET 1 TAB PO (10:10)
--- NOTE | 2022-08-26 11:14 | PM.PNGS ---
Progress Note: A&P Assessment and Plan (1) Abscess of axilla, right: Code(s): L02.411 - Cutaneous abscess of right axilla Status: Acute Assessment and Plan: Packing removed at bedside. Patient was very belligerent with me while removing packing in even said that I deserve to be shot. No further packing needed as abscess appears to be adequately drained. Continue daily dressing changes until wound seals. No surgical follow-up needed. Will sign off. Subjective Subjective Date/Time Seen: 08/26/22 11:14 Interval history: Patient recovering well after I&D of abscess yesterday. Exam Skin: Other: Packing removed at bedside. No purulence drainage, no bleeding, no erythema. Objective Data Vital Signs Vital Signs: Vital Signs - 24 hr 08/25/22 14:04 08/25/22 14:20 08/25/22 13:11 Temperature 36.6 C 37.0 C Pulse Rate 82 71 76 Respiratory Rate 23 H 18 18 Blood Pressure 116/48 L 123/58 L 102/74 Pulse Oximetry 100 100 98 Oxygen Delivery Simple Face Mask Simple Face Mask Room Air Oxygen Flow Rate 6 6 08/25/22 14:35 08/25/22 14:50 08/25/22 15:02 Temperature Pulse Rate 79 75 76 Respiratory Rate 18 14 14 Blood Pressure 147/60 H 134/65 139/59 L Pulse Oximetry 100 99 100 Oxygen Delivery Room Air Room Air Room Air Oxygen Flow Rate 08/25/22 15:18 08/25/22 15:48 08/25/22 16:07 Temperature 36.3 C L 36.1 C L 36.0 C L Pulse Rate 75 70 84 Respiratory Rate 15 16 16 Blood Pressure 103/57 L 147/50 H 100/55 L Pulse Oximetry 100 100 100 Oxygen Delivery Oxygen Flow Rate 08/25/22 20:40 08/26/22 00:10 08/26/22 04:48 Temperature 37.7 C H 37.7 C H 37.1 C Pulse Rate 86 77 79 Respiratory Rate 16 14 18 Blood Pressure 96/52 L 90/49 L 102/66 Pulse Oximetry 100 99 100 Oxygen Delivery Oxygen Flow Rate 08/26/22 08:00 08/26/22 08:48 Temperature 36.8 C 36.8 C Pulse Rate 71 71 Respiratory Rate 18 18 Blood Pressure 94/58 L 94/58 L Pulse Oximetry 98 98 Oxygen Delivery Oxygen Flow Rate Intake/Output Intake/Output: Intake & Output 08/23/22 08/24/22 08/25/22 08/26/22 23:59 23:59 23:59 23:59 Intake Total 250 2818 3450 Balance 250 2818 3450 Meds/Results Medications: Active Medications Generic Name Dose Route Start Last Admin Trade Name Freq PRN Reason Stop Dose Admin Acetaminophen 650 mg 08/24/22 18:27 Acetaminophen 325 Mg Tablet PO Q4H PRN Mild Pain (1-3) or Fever Hydrocodone Bitart/Acetaminophen 1 tab 08/25/22 15:03 Hydrocodone/Acetaminophen (*Crx) 5-325 Mg Tablet PO Q4H PRN Pain Rated 4-6 Hydrocodone Bitart/Acetaminophen 1 tab 08/25/22 15:03 08/26/22 10:10 Hydrocodone/Acetaminophen (*Crx) 10-325 Mg Tablet PO 1 tab Q6H PRN Administration Pain Rated 7-10 Alprazolam 0.25 mg 08/25/22 16:32 Alprazolam (*Crx) 0.25 Mg Tablet PO TID PRN Anxiety Enoxaparin Sodium 40 mg 08/25/22 09:00 08/26/22 08:57 Enoxaparin 40 Mg/0.4 Ml Syringe SUB-Q Not Given DAILY NEW Hydromorphone HCl 0.5 mg 08/25/22 15:03 Hydromorphone Hcl Inj (*Crx) 1 Mg/Ml Syr IV PUSH Q2H PRN Pain Rated 4-6 Hydromorphone HCl 1 mg 08/25/22 15:03 Hydromorphone Hcl Inj (*Crx) 1 Mg/Ml Syr IV PUSH Q2H PRN Pain Rated 7-10 Vancomycin HCl 750 mg in 250 mls @ 250 mls/hr 08/25/22 13:00 08/26/22 06:21 Vancomycin 750 Mg/Ns 250 Ml IVPB 200 mls/hr Q18H NEW Administration Lactated Ringer's 1,000 mls @ 100 mls/hr 08/25/22 07:35 08/26/22 09:00 Lr - Lactated Ringers Iv IV CONT 0 mls/hr .Q10H NEW Infusion Ceftriaxone Sodium 1 gm in 50 mls @ 100 mls/hr 08/25/22 10:00 08/26/22 09:00 Rocephin 1 Gm/Ns 50 Ml IVPB 100 mls/hr Q24H NEW Administration Ibuprofen 600 mg 08/25/22 15:03 08/26/22 09:39 Ibuprofen 600 Mg Tablet PO 600 mg Q6H PRN Administration Pain Rated 1-3 Nicotine 1 patch 08/25/22 15:10 08/26/22 08:59 Nicotine (*Elisa) 21 Mg Patch TRANSDERM 1 pat
--- NOTE | 2022-08-26 13:43 | WPDPN ---
Progress Note: A&P Assessment and Plan (1) Abscess of axilla, right: Code(s): L02.411 - Cutaneous abscess of right axilla Status: Acute Assessment and Plan: Likely secondary to acute folliculitis; now s/p I and D. Continue IV vancomycin. Warm compresses every 2-4 hrs. Pain management 08/26/2022 interval history: patient with right axilla abscess I and D in the ED but it was too painful and was not able to complete it, on 08/25 patient was seen by general surgery and patient was taken to OR and had I and D under anesthesia, today patient states feeling better, patient wound is growing Staph aureus patient is being treated with ceftriaxone and vancomycin, will follow up on wound and blood culture, patient stats feels anxious, will give low dose xanax. will monitor. (2) Leukocytosis: Qualifiers: Leukocytosis type: unspecified Qualified Code(s): D72.829 - Elevated white blood cell count, unspecified Code(s): D72.829 - Elevated white blood cell count, unspecified Status: Acute Assessment and Plan: Likely reactional. Expected to improve as infection resolves. Monitor ESR and CRP. Plan DVT prophylaxis: lovenox, walk each shift Subjective Date/time seen: 08/26/22 13:43 Interval history: Chief Complaint: Left axillary abscess. HPI-Narrative: This is a 36-year-old homeless man who presents to the ED with report of an abscess to his right axilla.?The patient was in his usual state of health until a week ago. He denies any prior episode.? Patient reports the abscess began about 1 week ago as an ingrown hair.? It has continued to bother him and has not improved.? He reports pain to his axillary region.? Denies any fevers, chills, or diaphoresis.? Patient was seen at an urgent care prior to arrival and would not allow the I&D to be performed.? Patient underwent I and D; approximately 60 mL of purulent drainage was drained from abscess . Procedure was aborted due to the patient's lack of cooperation. In the ED the patient presented with the following vital signs: A temperature of 98.4?, pulse rate 88, respiratory rate 16, blood pressure 123/68 and a pulse oximetry of 96.? He CBC showed a WBC of 19.7 with 72% neutrophils, hemoglobin 13.3, hematocrit 40 and a platelet count of 423.? His serum chemistry shows a sodium of 135, potassium 3.4, chloride 99, bicarbonate 32, BUN 11, and creatinine 0.1.? Blood glucose is 122.? The patient was appropriately started on IV vancomycin while cultures are pending.? Given the patient's social challenges, being homeless, he will be admitted as an inpatient for at least 2 midnights for further management. 08/26/2022 interval history: patient with right axilla abscess I and D in the ED but it was too painful and was not able to complete it, on 08/25 patient was seen by general surgery and patient was taken to OR and had I and D under anesthesia, today patient states feeling better, patient wound is growing Staph aureus patient is being treated with ceftriaxone and vancomycin, will follow up on wound and blood culture, patient stats feels anxious, will give low dose xanax. will monitor. Exam Narrative: Under nourished Patient is comfortable, NAD HEENT: eyes are clear and none icteric LUNGS: Normal respiratory effort ABD: Not distended Lower extremities: no edema SKIN: nonjaundiced. right axila, wound dressing Neuro: grossly intact. Objective Data Vital Signs Vital Signs: Vital Signs - 24 hr 08/25/22 14:04 08/25/22 14:20 08/25/22 14:35 Temperature 97.8 F Pulse Rate 82 71 79 Respiratory Rate 23 H 18 18 Blood Pressure 116/48 L 123/58 L 147/60 H Pulse Oximetry 100 100 100 Oxygen Delivery Simple Face Mask Simple Face Mask Room Air Oxygen Flow Rate 6 6 08/25/22 14:50 08/25/22 15:02 08/25/22 15:18 Temperature 97.4 F L Pulse Rate 75 76 75 Respiratory Rate 14 14 15 Blood Pressure 134/65 139/59 L 103/57 L Pulse Oximetry 99 100 100 Oxygen [place]
[2022-08-27 00:23] VITALS: BP 90/59; PULSE 66; RESP 14; TEMP 36.3; O2SAT 97
[2022-08-27 01:28] LABS: Vancomycin Trough < 5.0 ug/mL (10.0-20.0)
[2022-08-27] MEDS: VANCOMYCIN 1,250 MG/NS 250 ML 1,250 MG/250 ML BAG 166.67 MG IVPB (02:19)
[2022-08-27 06:00] VITALS: BP 97/60; PULSE 84; RESP 14; TEMP 36.8; O2SAT 95
[2022-08-27 06:06] LABS: Hematocrit 37.3 % (42.0-52.0); Hemoglobin 12.1 g/dL (14.0-18.0); Mean Corpuscular HGB Conc 32.4 g/dl (32-36); Mean Corpuscular Hemoglobin 29.6 pg (26-34); Mean Corpuscular Volume 91.2 fl (80-100); Mean Platelet Volume 8.9 fl (7.4-10.4); Platelet Count Result 438 k/mm3 (150-375); Red Blood Count 4.09 M/mm3 (4.6-6.20); Red Cell Distribution Width 12.8 % (11.5-14.5); White Blood Count 10.3 K/mm3 (4.5-10.0)
[2022-08-27 06:15] LABS: Anion Gap 3 mmol/L (8-16); Blood Urea Nitrogen 14 mg/dL (9-20); Calcium 8.5 mg/dL (8.4-10.2); Carbon Dioxide 33 mmol/L (22-30); Chloride 103 mmol/L (98-107); Estimated CRCL calculation 75 ml/min; Estimated Glomerular Filt Rate > 60; Glucose 101 mg/dL (65-110); Potassium 4.6 mmol/L (3.4-5.0); Sodium 139 mmol/L (137-145)
--- NOTE | 2022-08-27 09:48 | P.CDI_ITS ---
CDI Query Clarification Request BMI 14.5 Nutritional Diagnostic Statement Severe protein calorie malnutrition related to chronic social/environmental cause of homelessness, as evidenced by muscle wasting and fat loss; poor intake. Please refer to the comprehensive nutrition statement for further information. Please clarify severity of protein calorie malnutrition if known * Mild * Moderate * Severe * Other/Unspecified <Pilar Ritter RN - Last Filed: 08/27/22 09:53> Provider Comments agree patient has severe protein calorie malnutrition related to chronic social/environmental cause of homelessness, as evidenced by muscle wasting and fat loss; poor intake. <Elle Smith MD - Last Filed: 08/31/22 11:15>
--- NOTE | 2022-08-27 11:10 | PC.NURSE ---
went to give pt meds this am. pt very agitated and angry in room. pt states staff is not taking care of his needs. nurse asked what needs are not met. pt states that he is angry because no one is bringing him a cheeseburger. pt was told he is on a regular diet and he is able to order a cheeseburger with dietary. pt was told that it is ok for visitors to bring a cheeseburger as well. pt stated he was angry because he was only told of his lab results and did not get a printed sheet showing him of his lab results. pt was then given a print out of his lab result by this nurse. Pt stated he was angry because he was was unable to go outside and smoke but he is refusing the nicotine patch. pt states he wants to go outside to smoke and get fresh air because hospital air was stagnant. pt was offered a fan but he refused. pt states if he doesn't get out of the hospital soon he will break a window to get fresh air.
--- NOTE | 2022-08-27 12:19 | PM.DS ---
DS: Admitting Diagnosis Discharge Date 09/14/2022 Admitting Diagnosis Left axillary abscess. DS: Discharge Diagnosis Discharge Diagnosis (1) Abscess of axilla, right: Code(s): L02.411 - Cutaneous abscess of right axilla Status: Acute Assessment and Plan: Likely secondary to acute folliculitis; now s/p I and D. Continue IV vancomycin. Warm compresses every 2-4 hrs. Pain management 08/26/2022 interval history: patient with right axilla abscess I and D in the ED but it was too painful and was not able to complete it, on 08/25 patient was seen by general surgery and patient was taken to OR and had I and D under anesthesia, today patient states feeling better, patient wound is growing Staph aureus patient is being treated with ceftriaxone and vancomycin, will follow up on wound and blood culture, patient stats feels anxious, will give low dose xanax. will monitor. (2) Leukocytosis: Qualifiers: Leukocytosis type: unspecified Qualified Code(s): D72.829 - Elevated white blood cell count, unspecified Code(s): D72.829 - Elevated white blood cell count, unspecified Status: Acute Assessment and Plan: Likely reactional. Expected to improve as infection resolves. Monitor ESR and CRP. Plan DVT prophylaxis: lovenox, walk each shift DS: Summary Hospital Course Reason for hospitalization: Left axillary abscess. Narrative: This is a 36-year-old homeless man who presents to the ED with report of an abscess to his right axilla.?The patient was in his usual state of health until a week ago. He denies any prior episode.? Patient reports the abscess began about 1 week ago as an ingrown hair.? It has continued to bother him and has not improved.? He reports pain to his axillary region.? Denies any fevers, chills, or diaphoresis.? Patient was seen at an urgent care prior to arrival and would not allow the I&D to be performed.? Patient underwent I and D; approximately 60 mL of purulent drainage was drained from abscess . Procedure was aborted due to the patient's lack of cooperation. In the ED the patient presented with the following vital signs: A temperature of 98.4?, pulse rate 88, respiratory rate 16, blood pressure 123/68 and a pulse oximetry of 96.? He CBC showed a WBC of 19.7 with 72% neutrophils, hemoglobin 13.3, hematocrit 40 and a platelet count of 423.? His serum chemistry shows a sodium of 135, potassium 3.4, chloride 99, bicarbonate 32, BUN 11, and creatinine 0.1.? Blood glucose is 122.? The patient was appropriately started on IV vancomycin while cultures are pending.? Given the patient's social challenges, being homeless, he will be admitted as an inpatient for at least 2 midnights for further management. Hospital Course: ?patient with right axilla abscess I and D in the ED but it was too painful and was not able to complete it, on 08/25 patient was seen by general surgery and patient was taken to OR and had I and D under anesthesia, today patient states feeling better, patient wound is growing Staph aureus patient is being treated with ceftriaxone and vancomycin, will follow up on wound and blood culture, patient stats feels anxious, will give low dose xanax. will monitor. patient wound is growing MRSA, blood culture is growing staph hominis suspect contamination, will discharge on Bacterim and patient fill follow up with his primary care provider as soon as possible. Time Spent with Patient Time attestation: Total time spent providing and/or coordinating discharge services: Exam Narrative: Under nourished Patient is comfortable, NAD HEENT: eyes are clear and none icteric LUNGS: Normal respiratory effort ABD: Not distended Lower extremities: no edema SKIN: nonjaundiced. right axila, wound dressing Neuro: grossly intact. DS: Data Data Completed and Pending Labs on day of discharge: Labs from last 24 hours 08/27/22 08/27/22 05:56 00:39 WBC 10.3 H RBC 4.09 L Hgb 12.1
[2022-08-27] MEDS: SULFAMETHOXAZOLE/TRIMETHOPRIM 800/160 MG DS TABLET 1 TAB PO (12:34)
== END 2022-08-27 12:40 | disposition home or self-care (01) | DRG 383 ==
LOC: ANHED 18:27 → ANH3MEDSUR 19:44
PROVIDERS: Internal Medicine; Surgery; Admitting Provider Chiropractor; Emergency Provider Physician Assistant; PCP Family Medicine; Visit Provider Family Medicine
PROC: 0X940ZZ Drainage of Right Axilla, Open Approach (ICD-10-PCS; principal; 2022-08-25 14:00)
DX: L02.411 Cutaneous abscess of right axilla (principal); E43 Unspecified severe protein-calorie malnutrition; B95.62 Methicillin resistant Staphylococcus aureus infection as the cause of diseases classified elsewhere; F17.210 Nicotine dependence, cigarettes, uncomplicated; Z68.1 Body mass index [BMI] 19.9 or less, adult; Z59.00 Homelessness unspecified
CPT/HCPCS: 10060; 36415; 80048; 80053; 80202; 82565; 83036; 83605; 83735; 85025; 85027; 85652; 86140; 87040; 87070; 87147; 87181; 87186; 87205; 96365; 99285; A9270; G0378; G0379; J0696; J1100; J1650; J2250; J2405; J2704; J3010; J3370; J7120